=== PATIENT | female | born 1970 | race Caucasian/White ===

== ENCOUNTER 2024-06-14 11:20 | Emergency (ER) | payer BC ==
[2024-06-14] MEDS ORDERED: ONDANSETRON 4 MG/2 ML VIAL ONE (12:18)
[2024-06-14] MEDS ORDERED: FAMOTIDINE 20 MG/2 ML VIAL IV ONE (12:19)
[2024-06-14] MEDS ORDERED: NA CHLORIDE 0.9% 1,000 ML ONE ×2 (12:19→13:58)
[2024-06-14] MEDS ORDERED: FENTANYL CITR 100 MCG/2 ML ONE (12:20)
[2024-06-14 12:25] LABS: Absolute Basophils 0.1 K/uL (0-0.5); Absolute Eosinophils 0.2 K/uL (0-0.5); Absolute Lymphocytes (CBC) 5.2 K/uL (0.7-4.9); Absolute Monocytes 1.4 K/uL (0.1-1.3); Absolute Neutrophil 14.8 K/uL (1.8-8.0); Basophils % 0.6 % (0-1.3); Eosinophils % 0.8 % (0-4.4); Hematocrit 32.9 % (36.0-45.0); Hemoglobin 10.9 g/dL (12.0-15.0); Lymphocytes % 24.1 % (15.3-44.8); MCH 28.5 pg (27.0-35.0); MCHC 33.1 g/dL (32.0-36.0); MCV 86.1 fL (80-100); MPV 9.1 fL (7.6-11.3); Monocytes % 6.6 % (3.3-12.3); Neutrophils % 67.9 % (41.7-73.7); Nucleated Red Blood Cells % 0.1 % (0-0); Platelets 452 thou/uL (152-406); RBC Red Blood Cell Count 3.83 M/uL (3.86-4.86); Red Cell Distribution Width 14.9 % (12.1-15.2)
--- NOTE | 2024-06-14 12:30 | RAD REPORT ---
EXAM: Right upper quadrant ultrasound. CLINICAL HISTORY: ABD PAIN COMPARISON: None. FINDINGS: Gallbladder: No gallbladder calculus. Small polyp measuring 4 mm possible. Bile ducts: No intrahepatic or extrahepatic biliary dilatation. Common bile duct measures 1-2 mm. Limited imaging of the liver shows no concerning finding. IMPRESSION: No significant abnormality detected.
[2024-06-14 12:32] LABS: PT Prothrombin Time 11.4 SECONDS (9.4-12.5); Protime INR 1.09
--- NOTE | 2024-06-14 12:33 | RAD REPORT ---
EXAMINATION: ONE VIEW CHEST XR CLINICAL INDICATION: ABDOMINAL DISTENTION TECHNIQUE: Frontal chest projection is submitted. Examination is limited by patient positioning and t echnique. COMPARISON: No prior exam. FINDINGS: The lungs are well inflated and clear. The heart is normal in size. No displaced fractures identified . IMPRESSION: No acute intrathoracic abnormalities.
[2024-06-14 12:37] LABS: Specific Gravity 1.012 (1.005-1.030); Sqamous Epithelial <5 /HPF (None Seen); Transitional Epithelial <5 /HPF (None Seen); Urine Bacteria <20 /HPF (<20); Urine Bilirubin NEGATIVE (Negative); Urine Blood 2+ (Negative); Urine Clarity Extremely Turbid (Clear); Urine Color Light-Yellow (Yellow); Urine Culture Reflex Order NOT NEEDED; Urine Glucose NEGATIVE (Negative); Urine Ketones NEGATIVE (Negative); Urine Microscopic Reflex YN ORDER UMIC; Urine Mucus Slight /HPF (None Seen); Urine Nitrite NEGATIVE (Negative); Urine Protein 2+ (Negative); Urine RBC 21-50 /HPF (None Seen); Urine Urobilinogen Normal (Normal); Urine WBC <5 /HPF (<5); Urine pH 5.5 (5.0-7.0)
[2024-06-14 12:47] LABS: ALT/SGPT 19 U/L (13-56); Albumin 3.5 g/dL (3.4-5.0); Albumin/Globulin Ratio 0.6 (1.1-1.8); Alkaline Phosphatase 42 U/L (45-117); Anion Gap 6.3 mEq/L (5.0-15.0); BUN Blood Urea Nitrogen 41 mg/dL (7-18); Bicarbonate 29 mEq/L (21-32); Bilirubin Total 0.3 mg/dL (0.2-1.0); Globulin 5.4 g/dL (2.3-3.5); Glomerular Filtration Rate 21 ml/min (=/>90); Glucose Level 99 mg/dL (74-106); Lipase 111 U/L (13-75); Magnesium 2.1 mg/dL (1.6-2.4); NT PRO-BNP 525 pg/mL (<125); Potassium 3.3 mEq/L (3.5-5.1); Protein, Total 8.9 g/dL (6.4-8.2); Sodium Level 133 mEq/L (136-145)
[2024-06-14 12:51] LABS: AST/SGOT < 10 U/L (15-37); Bilirubin Direct < 0.2 mg/dL (0-0.2); Bilirubin Indirect, Calculated 0.1 mg/dL (0.2-0.8)
[2024-06-14] MEDS ORDERED: NA CHLORIDE 0.9% 100 ML ONE (12:53)
[2024-06-14] MEDS ORDERED: PIPERACIL/TAZO 3.375 GM VIAL IV ONE (12:54)
[2024-06-14 12:55] LABS: Troponin High Sensitivity 119.8 pg/mL (<58.9)
[2024-06-14 13:00] LABS: Blood Morphology Comment NOT SEEN (NOT SEEN); Platelet Estimate ADEQ; White Blood Cell Scan OK (OK)
--- NOTE | 2024-06-14 13:26 | RAD REPORT ---
EXAMINATION: CT ABDOMEN AND PELVIS WITHOUT CONTRAST CLINICAL INDICATION: Female, 53 years old.ABD PAIN TECHNIQUE: CT abdomen and pelvis was performed, without IV contrast, as per department protocol. Axia l, sagittal and coronal reconstructions were obtained. One or more of the following dose reduction techniques were used: Automated exposure control, adjustment of the mA and/or kV according to the pat ient size, and/or iterative reconstruction. Unless otherwise specified, incidental findings do not require dedicated imaging follow-up. [id number]. IV CONTRAST: Not administered. COMPARISON: None FINDINGS: The lack of intravenous contrast limits the sensitivity of this exam for evaluation of solid visceral organs, vascular structures, and retroperitoneum. LOWER CHEST: No acute process identified.No significant pericardial effusion. Mild circumferential th ickening of the distal esophagus which could reflect esophagitis. UPPER GI: There is some stranding the region of the first and second portion of the duodenum. LIVER: No significant focal abnormality. GALLBLADDER/BILE DUCTS: No biliary ductal dilatation.? PANCREAS: No mass, ductal dilation, or robert-pancreatic fluid. SPLEEN: Unremarkable. ADRENALS: No adrenal masses. KIDNEYS AND URETERS: No hydronephrosis.No renal or ureteral calculi. ABDOMINAL AORTA AND OTHER VESSELS: Mild atherosclerotic changes. PERITONEUM: No abnormal free fluid. No free air. LYMPH NODES: No pathologic lymphadenopathy. ABDOMINAL WALL: Unremarkable SMALL BOWEL/COLON: Small bowel has normal course and caliber. No colonic wall thickening or pericolon ic inflammatory changes.Normal appendix. URINARY BLADDER: Underdistended but grossly unremarkable. REPRODUCTIVE ORGANS: IUD projects into the cervix and possibly upper vagina. Multiple uterine fibroid s. MUSCULOSKELETAL: No acute or suspicious osseous abnormality. ADDITIONAL FINDINGS: None. IMPRESSION: 1. Mild edema around the first and second portion of the duodenum with wall thickening suspicious for either nonperforated peptic ulcer disease or duodenitis. Endoscopy could further evaluate. Suggest correlation with lipase to exclude pancreatitis though this is less favored. 2. Malpositioned IUD in the cervix/upper vagina. This should be removed.
--- NOTE | 2024-06-14 13:41 | EDPHYS ---
Physician Documentation [facility] Name: Katerin Villa Age: 53 yrs Sex: Female : 1970 Arrival Date: 06/14/2024 Time: 11:20 Bed 14 Private MD: ANALI Physician Ron Sylvester HPI: 06/14 13:32 This 53 yrs old Female presents to ER via Ambulatory with complaints of wendy Abdominal Pain. 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 - Infectious Disease History:: Denies. - Social history:: Smoking status: Patient reports the use of cigarette tobacco products, smokes one pack cigarettes per day. ROS: 13:35 Constitutional: Negative for fever, chills, and weight loss, Eyes: Negative for injury, wendy pain, redness, and discharge, ENT: Negative for injury, pain, and discharge, Neck: Negative for injury, pain, and swelling, Cardiovascular: Negative for chest pain, palpitations, and edema, Respiratory: Negative for shortness of breath, cough, wheezing, and pleuritic chest pain, Back: Negative for injury and pain, : Negative for injury, bleeding, discharge, and swelling, MS/Extremity: Negative for injury and deformity, Skin: Negative for injury, rash, and discoloration, Neuro: Negative for headache, weakness, numbness, tingling, and seizure, Psych: Negative for depression, anxiety, suicide ideation, homicidal ideation, and hallucinations, Allergy/Immunology: Negative for hives, rash, and allergies, Endocrine: Negative for neck swelling, polydipsia, polyuria, polyphagia, and marked weight changes, Hematologic/Lymphatic: Negative for swollen nodes, abnormal bleeding, and unusual bruising, 13:35 Abdomen/GI: Positive for abdominal pain, nausea, abdominal cramps, abdominal distension, of the epigastric area, right upper quadrant and left upper quadrant, Exam: 13:35 Constitutional: This is a well developed, well nourished patient who is awake, alert, wendy and in no acute distress. Head/Face: Normocephalic, atraumatic. Eyes: Pupils equal round and reactive to light, extra-ocular motions intact. Lids and lashes normal. Conjunctiva and sclera are non-icteric and not injected. Cornea within normal limits. Periorbital areas with no swelling, redness, or edema. ENT: Nares patent. No nasal discharge, no septal abnormalities noted. Tympanic membranes are normal and external auditory canals are clear. Oropharynx with no redness, swelling, or masses, exudates, or evidence of obstruction, uvula midline. Mucous membranes moist. Neck: Trachea midline, no thyromegaly or masses palpated, and no cervical lymphadenopathy. Supple, full range of motion without nuchal rigidity, or vertebral point tenderness. No Meningismus. Chest/axilla: Normal chest wall appearance and motion. Nontender with no deformity. No lesions are appreciated. Cardiovascular: Regular rate and rhythm with a normal S1 and S2. No gallops, murmurs, or rubs. Normal PMI, no JVD. No pulse deficits. Respiratory: Lungs have equal breath sounds bilaterally, clear to auscultation and percussion. No rales, rhonchi or wheezes noted. No increased work of breathing, no retractions or nasal flaring. Back: No spinal tenderness. No costovertebral tenderness. Full range of motion. Skin: Warm, dry with normal turgor. Normal color with no rashes, no lesions, and no evidence of cellulitis. MS/ Extremity: Pulses equal, no cyanosis. Neurovascular intact. Full, normal range of motion., bilateral aka Neuro: Awake and alert, GCS 15, oriented to person, place, time, and situation. Cranial nerves II-XII grossly intact. Motor strength 5/5 in all extremities. Sensory grossly intact. Cerebellar exam normal. Normal gait. Psych: Awake, alert, with orientation to person, place and time. Behavior, mood, and affect are within normal limits. 13:35 ECG was reviewed by the Attending Physician. 13:35 Abdomen/GI: Inspection: abdomen appears normal, Bowel sounds: normal, Palpation: moderate abdominal tenderness, in the epigastric area, right upper quadrant and left upper quadrant, severe abdominal tenderness, in the epigastric area, right upper quadrant and left upper quadrant, Liver: no appreciated palpable abnormalities, Hernia: not appreciated, Vital Signs: 11:30 BP 171 / 78; Pulse 104; Resp 17; Temp 97.4; Pulse Ox 100% ; Weight 57.61 kg; Height 4 ll1 ft. 10 in. ; Pain 8/10; 13:00 BP 164 / 68; Pulse 70; Resp 18; Pulse Ox 100% ; kj2 14:00 BP 105 / 52; Pulse 84; Resp 20; Pulse Ox 99% ; kj2 15:00 BP 128 / 65; Pulse 80; Resp 20; Temp 97.9; Pulse Ox 99% on R/A; kj2 17:10 BP 131 / 67; Pulse 94; Resp 18; Temp 97.9; Pulse Ox 100% on R/A; kj2 11:30 Body Mass Index 26.54 (57.61 kg, 147.32 cm) ll1 11:30 Pain Scale: Adult ll1 MDM: 11:24 Medical Screening Exam initiated wendy 13:36 Differential diagnosis: AAA, bowel obstruction, cholecystitis, Cholelithiasis, wendy diverticulitis, gastritis, GI Bleed, Hepatitis, Mesenteric ischemia or infarction, non-specific abd pain, pancreatitis, Peptic Ulcer Disease, Perf. Duodenal Ulcer, Perf. Gastric Ulcer, Peritonitis, Pyelonephritis, Ureterolithiasis, urinary tract infection. Data reviewed: vital signs, nurses notes, lab test result(s), EKG, radiologic studies, CT scan, plain films, ultrasound. Consideration of Admission/Observation Escalation of care including admission/observation considered. I considered the following discharge prescriptions or medication management in the emergency department Medications were administered in the Emergency Department. See MAR. Independent interpretation of the following test(s) in the Emergency Department EKG: See my EKG interpretation above. Test considered but Not performed: MRI: NO MRCP. Historians other than the Patient: PT WELL INFORMED. Care significantly affected by the following chronic conditions: Diabetes, Hypertension, PUD. Counseling: I had a detailed discussion with the patient and/or guardian regarding the historical points, exam findings, and any diagnostic results supporting the discharge/admit diagnosis, the presence of at least one elevated blood pressure reading (>120/80) during this emergency department visit, lab results, the need to transfer to another facility, for higher level of care, [facility] does not immediately have the required specialist. 06/14 11:26 Order name: Basic Metabolic Panel; Complete Time: 12:58 [facility] 06/14 11:26 Order name: CBC with Diff; Complete Time: 13:28 [facility] 06/14 11:26 Order name: LFT's; Complete Time: 12:58 [facility] 06/14 11:26 Order name: Magnesium; Complete Time: 12:58 [facility] 06/14 11:26 Order name: NT PRO-BNP; Complete Time: 12:58 [facility] 06/14 11:26 Order name: PT-INR; Complete Time: 12:58 [facility] 06/14 11:26 Order name: Troponin HS; Complete Time: 12:58 [facility] 06/14 11:26 Order name: Lipase; Complete Time: 12:58 [facility] 06/14 11:26 Order name: Urinalysis w/ reflexes; Complete Time: 12:58 [facility] 06/14 13:00 Order name: CBC Smear Scan; Complete Time: 13:28 [facility] 06/14 11:26 Order name: XRAY Chest (1 view); Complete Time: 12:58 [facility] 06/14 11:26 Order name: US Abdomen Limited; Complete Time: 12:32 [facility] 06/14 13:01 Order name: Abdomen ; Complete Time: 13:28 [facility] 06/14 11:26 Order name: Cardiac monitoring; Complete Time: 13:04 [facility] 06/14 11:26 Order name: EKG - Nurse/Tech; Complete Time: 13:03 [facility] 06/14 11:26 Order name: IV Saline Lock; Complete Time: 12:20 [facility] 06/14 11:26 Order name: Labs collected and sent; Complete Time: 12:20 [facility] 06/14 11:26 Order name: O2 Per Protocol; Complete Time: 12:21 [facility] 06/14 11:26 Order name: O2 Sat Monitoring; Complete Time: 12:21 [facility] EC:35 Rate is 86 beats/min. Rhythm is regular. QRS Nixa is Normal. [place] interval is normal. QRS wendy interval is normal. QT interval is normal. No Q waves. T waves are Normal. No ST changes noted. Clinical impression: Normal ECG and No evidence of ischemia. Interpreted by me. Reviewed by me. Administered Medications: 17:13 Discontinued: pantoprazole8 mg/hr IV at 25 ml/hr continuous; (Standard dilution is 80 kj2 mg in 250 mL NS) 17:12 Discontinued: ns 0.9% 1000 ml IV at 125 ml/hr once kj2 12:26 Drug: Ondansetron IVP 4 mg IVP once; over 2 minutes Route: IVP; Site: right antecubital;kj2 13:51 Follow up: Response: No adverse reaction kj2 12:26 Drug: Famotidine IVP 20 mg IVP once; dilute with 10 mL 0.9% NaCl; give over 2 minutes kj2 Route: IVP; Site: right antecubital; 13:50 Follow up: Response: No adverse reaction kj2 12:27 Drug: NS 0.9% IV 1000 ml IV at 1000 ml once; to be given as a bolus over 60 minutes kj2 Route: IV; Rate: 1000 ml; Site: right antecubital; 13:51 Follow up: IV Status: Completed infusion; IV Intake: 1000ml kj2 12:27 Drug: fentaNYL (PF) IVP 50 mcg IVP once Route: IVP; Site: right antecubital; kj2 13:51 Follow up: Response: No adverse reaction kj2 13:03 Drug: Piperacillin-Tazobactam IVPB 3.375 grams IVPB once over 60 mins; (mix in NS 100 kj2 mL) Route: IVPB; Infused Over: 60 mins; Site: right antecubital; 17:13 Follow up: Response: No adverse reaction kj2 17:13 Follow up: IV Status: Completed infusion; IV Intake: 100ml kj2 14:18 Drug: Pantoprazole IVP 80 mg IVP once Route: IVP; Site: right antecubital; kj2 17:13 Follow up: Response: No adverse reaction kj2 14:18 Drug: Pantoprazole IV 8 mg/hr IV at 25 ml/hr continuous; (Standard dilution is 80 mg in kj2 250 mL NS) Route: IV; Rate: 25 ml/hr; Site: right antecubital; 14:18 Drug: NS 0.9% IV 1000 ml IV at 125 ml/hr once Route: IV; Rate: 125 ml/hr; Site: right kj2 antecubital; Disposition Summary: 06/14/24 13:41 Transfer Ordered Notes: Transfer Location: [facility] wendy Reason: Higher level of care wendy Condition: Fair wendy Problem: new wendy Symptoms: have improved wendy Accepting Physician: CHRIST GUDINO(06/14/24 17:15) kj2 Diagnosis - Personal history of peptic ulcer disease wendy - Acute peptic ulcer, site unspecified, without hemorrhage or perforation - NON wendy PERFORATED DOUDENAL ULCER - Other acute kidney failure - CHRONIC wendy - Hypokalemia wendy - Elevated white blood cell count wendy - Non ST elevation HI wenyd - Abnormal levels of other serum enzymes - ELEVATED TROPONIN/LIPASE wendy Forms: - Medication Reconciliation Form wendy - SBAR form wendy Signatures: Dispatcher [employer] EDMS Ron Sylvester MD MD cha Lewis, Lynsay RN RN ll1 Katya Guallpa RN RN kj2 Corrections: (The following items were deleted from the chart) 11: 11:27 BASIC METABOLIC PANEL+C.LAB.BRZ ordered. EDMS EDMS 11: 11:27 CBC+H.LAB.BRZ ordered. EDMS EDMS 11: 11:27 HEPATIC FUNCTION+C.LAB.BRZ ordered. EDMS EDMS 11: 11:27 MAGNESIUM+C.LAB.BRZ ordered. EDMS EDMS 11: 11:27 PROBNP+C.LAB.BRZ ordered. EDMS EDMS 11: 11:27 PROTIME (+INR)+COAG.LAB.BRZ ordered. EDMS EDMS 11: 11:27 Troponin High Sensitivity+C.LAB.BRZ ordered. EDMS EDMS 11: 11:27 LIPASE+C.LAB.BRZ ordered. EDMS EDMS 11: 11:27 Urinalysis+U.LAB.BRZ ordered. EDMS EDMS 11: 11:27 Chest Single View+RAD.RAD.BRZ ordered. EDMS EDMS 11: 11:27 Abdomen Limited+US.RAD.BRZ ordered. EDMS EDMS 11: 11:27 Abdomen Pelvis W Con+CT.RAD.BRZ ordered. EDMS EDMS 11: 11:29 PMHx: Headache; ll1 ll1 11:30 11:29 PMHx: Hypothyroidism; ll1 ll1 14:06 13:41 [facility] wendy wendy 17:15 14:06 [facility] wendy kj2
--- NOTE | 2024-06-14 13:41 | ER ---
Nurse's Notes [facility] Name: Katerin Villa Age: 53 yrs Sex: Female : 1970 Arrival Date: 06/14/2024 Time: 11:20 Bed 14 Private MD: Diagnosis: Personal history of peptic ulcer disease;Acute peptic ulcer, site unspecified, without hemorrhage or perforation-NON PERFORATED DOUDENAL ULCER;Other acute kidney failure-CHRONIC;Hypokalemia;Elevated white blood cell count;Non ST elevation AL;Abnormal levels of other serum enzymes-ELEVATED TROPONIN/LIPASE Presentation: 06/14 11:30 Chief complaint: Patient states: Upper abdominal pain since Tuesday. Sent in by Dr. giselle Bhakta for further evaluation. Coronavirus screen: Client denies travel out of the [place] in the last 14 days. At this time, the client does not indicate any symptoms associated with coronavirus-19. Ebola Screen: Patient denies travel to an Ebola-affected area in the 21 days before illness onset. Initial Sepsis Screen: Does the patient meet any 2 criteria? No. Patient's initial sepsis screen is negative. Does the patient have a suspected source of infection? No. Patient's initial sepsis screen is negative. Risk Assessment: Do you want to hurt yourself or someone else? Patient reports no desire to harm self or others. Onset of symptoms was June 12, 2024. 11:30 Method Of Arrival: Ambulatory [facility] 11:30 Acuity: JUSTA 3 ll1 Triage Assessment: 11:32 General: Appears uncomfortable, Behavior is calm, cooperative, appropriate for age. ll1 Pain: Complains of pain in upper abdomen. GI: Reports upper abdominal pain, cramping. 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 - Infectious Disease History:: Denies. - Social history:: Smoking status: Patient reports the use of cigarette tobacco products, smokes one pack cigarettes per day. Screenin:08 [facility] ED Fall Risk Assessment (Adult) History of falling in the last 3 months, kj2 including since admission No falls in past 3 months (0 pts) Confusion or Disorientation No (0 pts) Intoxicated or Sedated No (0 pts) Impaired Gait No (0 pts) Mobility Assist Device Used No (0 pt) Altered Elimination No (0 pt) Score/Fall Risk Level 0 - 2 = Low Risk Maintained a safe environment, Hourly rounding (assess needs \T\ fall precautionary measures) done. Abuse screen: Denies threats or abuse. Denies injuries from another. Nutritional screening: No deficits noted. Tuberculosis screening: No symptoms or risk factors identified. Assessment: 11:32 Reassessment: To US, gait steady. ll1 12:08 Reassessment: Patient appears in no apparent distress at this time. Patient and/or kj2 family updated on plan of care and expected duration. Pain level reassessed. Patient is alert, oriented x 3, equal unlabored respirations, skin warm/dry/pink. 13:00 Reassessment: Patient appears in no apparent distress at this time. Patient and/or kj2 family updated on plan of care and expected duration. Pain level reassessed. Patient is alert, oriented x 3, equal unlabored respirations, skin warm/dry/pink. 14:00 Reassessment: Patient appears in no apparent distress at this time. Patient and/or kj2 family updated on plan of care and expected duration. Pain level reassessed. Patient is alert, oriented x 3, equal unlabored respirations, skin warm/dry/pink. 15:00 Reassessment: Patient appears in no apparent distress at this time. Patient and/or kj2 family updated on plan of care and expected duration. Pain level reassessed. Patient is alert, oriented x 3, equal unlabored respirations, skin warm/dry/pink. 15:45 Reassessment: attempt to call report x's 3, no answer. kj2 17:11 Reassessment: Patient appears in no apparent distress at this time. Patient and/or kj2 family updated on plan of care and expected duration. Pain level reassessed. Patient is alert, oriented x 3, equal unlabored respirations, skin warm/dry/pink. 17:11 GI: Bowel sounds present X 4 quads. Abdomen is tender to palpation. kj2 Vital Signs: 11:30 BP 171 / 78; Pulse 104; Resp 17; Temp 97.4; Pulse Ox 100% ; Weight 57.61 kg; Height 4 ll1 ft. 10 in. ; Pain 8/10; 13:00 BP 164 / 68; Pulse 70; Resp 18; Pulse Ox 100% ; kj2 14:00 BP 105 / 52; Pulse 84; Resp 20; Pulse Ox 99% ; kj2 15:00 BP 128 / 65; Pulse 80; Resp 20; Temp 97.9; Pulse Ox 99% on R/A; kj2 17:10 BP 131 / 67; Pulse 94; Resp 18; Temp 97.9; Pulse Ox 100% on R/A; kj2 11:30 Body Mass Index 26.54 (57.61 kg, 147.32 cm) ll1 11:30 Pain Scale: Adult ll1 ED Course: 11:23 Patient arrived in ED. mr 11:24 Ron Sylvester MD is Attending Physician. wendy 11:28 Arm band placed on. ll1 11:32 Triage completed. ll1 11:49 US Abdomen Limited In Process Unspecified. EDMS 11:58 XRAY Chest (1 view) In Process Unspecified. EDMS 12:06 Katya Guallpa, RN is Primary Nurse. kj2 12:09 Patient placed in an exam room, on a stretcher. ll1 12:09 Patient has correct armband on for positive identification. Call light in reach. kj2 Provided Education on: call light. 12:10 No provider procedures requiring assistance completed. kj2 12:20 Urinalysis w/ reflexes Sent. kc6 12:21 Initial lab(s) drawn, by mt, sent to lab. Urine collected: clean catch specimen, kc6 cloudy. Inserted saline lock: 22 gauge in right antecubital area, using aseptic technique. Blood collected. Flushed with 10 mL NS. Patient maintains SpO2 saturation greater than 95% on room air. 13:11 Abdomen In Process Unspecified. EDMS 13:37 initiated transfer to [facility]. bd 16:04 pt accepted in transfer to [facility] by dr Abdi admin approval given by sejal Aburto, pt going to [id number]. 17:12 Patient transferred, IV remains in place. kj2 Administered Medications: 17:13 Discontinued: pantoprazole8 mg/hr IV at 25 ml/hr continuous; (Standard dilution is 80 kj2 mg in 250 mL NS) 17:12 Discontinued: ns 0.9% 1000 ml IV at 125 ml/hr once kj2 12:26 Drug: Ondansetron IVP 4 mg IVP once; over 2 minutes Route: IVP; Site: right antecubital;kj2 13:51 Follow up: Response: No adverse reaction kj2 12:26 Drug: Famotidine IVP 20 mg IVP once; dilute with 10 mL 0.9% NaCl; give over 2 minutes kj2 Route: IVP; Site: right antecubital; 13:50 Follow up: Response: No adverse reaction kj2 12:27 Drug: NS 0.9% IV 1000 ml IV at 1000 ml once; to be given as a bolus over 60 minutes kj2 Route: IV; Rate: 1000 ml; Site: right antecubital; 13:51 Follow up: IV Status: Completed infusion; IV Intake: 1000ml kj2 12:27 Drug: fentaNYL (PF) IVP 50 mcg IVP once Route: IVP; Site: right antecubital; kj2 13:51 Follow up: Response: No adverse reaction kj2 13:03 Drug: Piperacillin-Tazobactam IVPB 3.375 grams IVPB once over 60 mins; (mix in NS 100 kj2 mL) Route: IVPB; Infused Over: 60 mins; Site: right antecubital; 17:13 Follow up: Response: No adverse reaction kj2 17:13 Follow up: IV Status: Completed infusion; IV Intake: 100ml kj2 14:18 Drug: Pantoprazole IVP 80 mg IVP once Route: IVP; Site: right antecubital; kj2 17:13 Follow up: Response: No adverse reaction kj2 14:18 Drug: Pantoprazole IV 8 mg/hr IV at 25 ml/hr continuous; (Standard dilution is 80 mg in kj2 250 mL NS) Route: IV; Rate: 25 ml/hr; Site: right antecubital; 14:18 Drug: NS 0.9% IV 1000 ml IV at 125 ml/hr once Route: IV; Rate: 125 ml/hr; Site: right kj2 antecubital; Medication: 12:09 VIS not applicable for this client. kj2 Intake: 13:51 IV: 1000ml; Total: 1000ml. kj2 17:13 IV: 100ml; Total: 1100ml. kj2 Outcome: 13:41 ER care complete, transfer ordered by MD. nguyen 17:11 Transferred by ground EMS to [facility], [facility], kj2 17:11 Condition: stable 17:15 Patient left the ED. kj2 Signatures: Dispatcher [employer] EDErika Mullen Corey, MD MD cha Rivera, Glendy, Reg Reg mr Shayne Ag, RN RN ll1 An Munoz RN RN kc6 Katya Guallpa RN RN kj2 Corrections: (The following items were deleted from the chart) 11: 11:29 PMHx: Headache; ll1 ll1 11:30 11:29 PMHx: Hypothyroidism; ll1 ll1
[2024-06-14] MEDS ORDERED: PANTOPRAZOLE 40 MG INJ ONE ×2 (13:57→13:59)
[2024-06-14] MEDS ORDERED: NA CHLORIDE 0.9% 250 ML ONE (14:00)
[2024-06-15 03:06] VITALS: BP 131/67; TEMP 97.9; O2SAT 100
== END 2024-06-14 17:15 | disposition short-term general hospital (02) ==
LOC: ER 11:20
DX: K26.3 Acute duodenal ulcer without hemorrhage or perforation (principal); I21.4 Non-ST elevation (NSTEMI) myocardial infarction; N17.8 Other acute kidney failure; E87.6 Hypokalemia; D72.829 Elevated white blood cell count, unspecified; R79.89 Other specified abnormal findings of blood chemistry; R77.8 Other specified abnormalities of plasma proteins; Z87.11 Personal history of peptic ulcer disease; F17.210 Nicotine dependence, cigarettes, uncomplicated
CPT/HCPCS: 96365; 96361; 85025; 81001; 80048; 36415; 83735; 85610; 80076; 84484; 83690; 83880; 74176; 71045; 76705; 96375; 99285; 96366; J2543; J2470 ×2; J3010; J2405; J7050; J7030 ×2